=== PATIENT | female | born 2005 | race Two or more races ===

== ENCOUNTER 2023-06-28 13:03 | Emergency (ER) | payer MEDICAID, OTHER ==
[~2023-06-28] VITALS: Ht 177.8 cm; Wt 105.8 kg
[2023-06-28 14:17] VITALS: BP 142/99; PULSE 90; RESP 16; TEMP 98.1; O2SAT 99
[2023-06-28] MEDS ORDERED: KETOROLAC TROMETH 60MG/2ML VIAL IM ONE (14:30)
[2023-06-28] MEDS ORDERED: ACE3T PO (15:48)
[2023-06-28] MEDS ORDERED: IBUP-1455 PO (15:48)
== END 2023-06-28 16:55 | disposition home or self-care (01) ==
LOC: ER 13:03
DX: S16.1XXA Strain of muscle, fascia and tendon at neck level, initial encounter (principal); S09.90XA Unspecified injury of head, initial encounter; V49.9XXA Car occupant (driver) (passenger) injured in unspecified traffic accident, initial encounter; Y93.I9 Activity, other involving external motion; Y92.413 State road as the place of occurrence of the external cause; Y99.8 Other external cause status
CPT/HCPCS: 70450; 72125; 96372; 99285; J1885